=== PATIENT | male | born 1975 | race Two or more races ===

== ENCOUNTER 2024-04-06 21:58 | Inpatient (IN) | payer OTHER ==
[~2024-04-06] VITALS: Ht 170.2 cm; Wt 86.2 kg
[2024-04-06] MEDS ORDERED: GLUMETZA500 MG (22:06)
[2024-04-06] MEDS ORDERED: GLIMEPIRIDE2 MG (22:06)
[2024-04-06] MEDS ORDERED: SIMVASTATIN20 MG (22:06)
--- NOTE | 2024-04-06 22:27 | NUR ---
PTE ALERTA Y ORIENTADO X3, REFIERE VENIR POR SENTIR PALPITACIONES, NO REFIERE DOLOR DE PECHO. SE REALIZA EKG Y SE PRESENTA A QUIEN INDICA UBICAR PTE EN UNIDAD DE CRITICO. SE UBICA EN CRITICO #1 Y SE CONECTA A MONITOR Y OXIMETRIA DE PULSO CONTINUA.
[2024-04-06] MEDS ORDERED: DILTIAZEM HCL 25 MG/5 ML VIAL IV ONE (22:45)
[2024-04-06] MEDS ORDERED: DILTIAZEM HCL 125 MG in 0.9 % SODIUM CHLORIDE 125 ML IV SCH (22:45)
[2024-04-06] MEDS ORDERED: 0.9 % SODIUM CHLORIDE 1,000 ML IV SCH ×2 (22:45→23:15)
--- NOTE | 2024-04-06 22:49 | NUR ---
SE ORIENTA PTE SOBRE TX A SEGUIR, EL MISMO REFIERE ENTENDER. SE PEGGY MUESTRAS DE LAB, SE CANALIZA X2 EN BRAZO DERECHO CON ANGIO #18 EN ANTE BRAZO Y EN MANO.
[2024-04-06 22:55] LABS: HEMATOCRIT 43.1 % (39.0-48.0); HEMOGLOBIN 14.1 g/dL (13-16.00); MEAN CELL VOLUME 93.3 fL (80.0-100.00); MEAN CORPUSCULAR HEMOGLOBIN 30.6 pg (27.00-32.0); MEAN CORPUSCULAR HGB CONC 32.8 g/dl (32.0-36.0); PLATELET COUNT 264 K/uL (150-450); RED BLOOD COUNT 4.62 M/uL (4.00-6.00); RED CELL DISTRIBUTION WIDTH 13.5 % (11.5-14.5)
[2024-04-06 23:16] LABS: INR < 0.93; PARTIAL THROMBOPLASTIN TIME 27.3 SECONDS (22.0-34.0); PROTHROMBIN TIME 10.2 SECONDS (9.0-11.5)
[2024-04-06] MEDS ORDERED: ENOXAPARIN SODIUM 100 MG/ML SYRINGE SUBCUTANEO SCH (23:16)
[2024-04-06 23:22] LABS: ALBUMIN 4.1 gm/dL (3.4-5.0); BILIRUBIN TOTAL 0.34 mg/dL (0.3-1.2); CALCIUM 9.3 mg/dL (8.5-10.1); CREATININE SERUM 1.11 mg/dL (0.70-1.30); GFR 70.41; GLOBULINA 4.2 G/DL (2.4-3.5); POTASSIUM 3.71 mEq/L (3.5-5.1); TOTAL PROTEIN 8.3 gm/dL (6.4-8.2)
[2024-04-06] MEDS ORDERED: ACETAMINOPHEN 500 MG GEL..CAP PO PRN (23:30)
[2024-04-06] MEDS ORDERED: INSULIN LISPRO 1,000 UNIT/10 ML UNITS SUBCUTANEO PRN (23:30)
[2024-04-06] MEDS ORDERED: DEXTROSE 50 % IN WATER 0.5 G/ML DISP.SYRIN IV PRN (23:30)
[2024-04-07] VITALS (7 sets, daily range): BP systolic 97–110; BP diastolic 57–74; O2SAT 95–100
[2024-04-07 07:08] LABS: CHOL HDL RATIO 3.1 (0-5.0); TSH 1.16 uIU/mL (0.358-3.74)
[2024-04-07] MEDS ORDERED: METOPROLOL SUCCINATE 25 MG TAB.SR.24H PO SCH (09:00)
[2024-04-07] MEDS ORDERED: FAMOTIDINE/PF 20 MG in 0.9 % SODIUM CHLORIDE 8 ML IV PUSH SCH (09:00)
[2024-04-07] MEDS ORDERED: ATORVASTATIN CALCIUM 40 MG TABLET PO SCH (09:00)
[2024-04-08] VITALS (9 sets, daily range): BP systolic 112–119; BP diastolic 69–79; O2SAT 90–100
[2024-04-08] MEDS ORDERED: APIXABAN 5 MG TABLET PO SCH (21:00)
[2024-04-08] MEDS ORDERED: FF) FLECAINIDE ACETATE 50MG TAB PO SCH (21:00)
[2024-04-09] VITALS (8 sets, daily range): BP systolic 83–119; BP diastolic 46–68; O2SAT 90–100
[2024-04-10] VITALS: O2SAT 99
[2024-04-10 00:41] VITALS: BP 92/53; O2SAT 100
[2024-04-10 06:06] VITALS: O2SAT 90
[2024-04-10 07:00] LABS: HEMATOCRIT 37.7 % (39.0-48.0); HEMOGLOBIN 12.3 g/dL (13-16.00); MEAN CELL VOLUME 92.7 fL (80.0-100.00); MEAN CORPUSCULAR HEMOGLOBIN 30.3 pg (27.00-32.0); MEAN CORPUSCULAR HGB CONC 32.6 g/dl (32.0-36.0); PLATELET COUNT 217 K/uL (150-450); RED BLOOD COUNT 4.07 M/uL (4.00-6.00); RED CELL DISTRIBUTION WIDTH 13.5 % (11.5-14.5)
[2024-04-10 08:17] LABS: ALBUMIN 3.3 gm/dL (3.4-5.0); BILIRUBIN TOTAL 0.47 mg/dL (0.3-1.2); CALCIUM 8.8 mg/dL (8.5-10.1); CREATININE SERUM 0.98 mg/dL (0.70-1.30); GFR 81.29; GLOBULINA 3.3 G/DL (2.4-3.5); POTASSIUM 4.96 mEq/L (3.5-5.1); TOTAL PROTEIN 6.6 gm/dL (6.4-8.2)
[2024-04-10 08:20] VITALS: BP 109/69; O2SAT 100
[2024-04-10 08:58] VITALS: O2SAT 100
[2024-04-10 12:58] VITALS: O2SAT 95
== END 2024-04-10 13:53 | disposition home or self-care (01) | DRG 310 ==
LOC: ER 22:00 → SEC-K 23:17 → ICU-2 23:17 → SEC-K 04-07 09:22 → MEDI 04-07 12:33
PROVIDERS: General Practice; Internal Medicine; ADMIT Internal Medicine; ATTEND Internal Medicine
PROC: B246ZZZ Ultrasonography of Right and Left Heart (ICD-10-PCS; principal; 2024-04-06)
PROC: 4A12X4Z Monitoring of Cardiac Electrical Activity, External Approach (ICD-10-PCS; 2024-04-07)
DX: I48.20 Chronic atrial fibrillation, unspecified (principal); I10 Essential (primary) hypertension; E11.649 Type 2 diabetes mellitus with hypoglycemia without coma; Z79.4 Long term (current) use of insulin

== ENCOUNTER 2024-06-21 21:12 | Emergency (ER) | payer OTHER ==
[~2024-06-21] VITALS: Ht 182.9 cm; Wt 104.3 kg
[~2024-06-21 21:12] MED LIST: GLIMEPIRIDE2 MG; GLUMETZA500 MG; SIMVASTATIN20 MG
[2024-06-21 21:35] VITALS: BP 107/69; O2SAT 96
[2024-06-21] MEDS ORDERED: METFORMIN HCL1000 MG (21:35)
[2024-06-21] MEDS ORDERED: ELIQUIS5 MG PO (21:35)
[2024-06-21] MEDS ORDERED: LIPITOR40 M1 PO (21:35)
[2024-06-21] MEDS ORDERED: TOPROL XL25 M1 (21:35)
[2024-06-22] MEDS ORDERED: ORPHENADRINE CITRATE 30 MG/ML AMPUL IM STA (02:51)
[2024-06-22] MEDS ORDERED: ACETAMINOPHEN 500 MG GEL..CAP PO STA (02:51)
[2024-06-22 03:21] LABS: HEMATOCRIT 40.6 % (39.0-48.0); HEMOGLOBIN 13.6 g/dL (13-16.00); MEAN CELL VOLUME 91.3 fL (80.0-100.00); MEAN CORPUSCULAR HEMOGLOBIN 30.6 pg (27.00-32.0); MEAN CORPUSCULAR HGB CONC 33.6 g/dl (32.0-36.0); PLATELET COUNT 209 K/uL (150-450); RED BLOOD COUNT 4.45 M/uL (4.00-6.00)
[2024-06-22 03:25] LABS: URINE APPEARANCE Clear; URINE BILIRRUBIN Negative (NEGATIVE); URINE BLOOD Negative; URINE COLOR Dark Yellow; URINE GLUCOSE Negative (NEGATIVE); URINE KETONE Trace (NEGATIVE); URINE LEUKOCYTE Negative; URINE NITRATE Negative; URINE PROTEIN 30 (NEGATIVE); URINE UROBILINOGEN 0.2 E.U./dl
[2024-06-22 03:28] LABS: URINE BACTERIA 13.4 uL (0.0-1933); URINE EPITHELIAL CELLS 3.4 uL (0.0-38.8); URINE WBC 3.9 uL (0.0-23.2)
[2024-06-22 03:39] LABS: URINE CAST 0.58 uL (0.0-1.40); URINE RBC 1.3 uL (0.0-20.8)
[2024-06-22] MEDS ORDERED: NORFLEX100MG PO (06:51)
[2024-06-22] MEDS ORDERED: PAIN RELIEVER500 MG PO (06:51)
== END 2024-06-22 07:11 ==
LOC: ER 21:14
PROVIDERS: General Practice
DX: B34.9 Viral infection, unspecified (principal); R53.81 Other malaise; Z20.822 Contact with and (suspected) exposure to COVID-19; E11.9 Type 2 diabetes mellitus without complications; Z79.84 Long term (current) use of oral hypoglycemic drugs; Z88.6 Allergy status to analgesic agent

== ENCOUNTER 2024-06-26 19:37 | Emergency (ER) | payer OTHER ==
[~2024-06-26] VITALS: Ht 182.9 cm; Wt 102.1 kg
[~2024-06-26 19:37] MED LIST changes: +ELIQUIS5 MG PO; +LIPITOR40 M1 PO; +METFORMIN HCL1000 MG; +NORFLEX100MG PO; +PAIN RELIEVER500 MG PO; +TOPROL XL25 M1
[2024-06-26 21:18] LABS: CALCIUM 9.2 mg/dL (8.5-10.1); CREATININE SERUM 1.22 mg/dL (0.70-1.30); GFR 62.87; POTASSIUM 4.63 mEq/L (3.5-5.1)
[2024-06-26 22:27] LABS: HEMATOCRIT 45.3 % (39.0-48.0); MEAN CELL VOLUME 91.1 fL (80.0-100.00); MEAN CORPUSCULAR HEMOGLOBIN 30.1 pg (27.00-32.0); MEAN CORPUSCULAR HGB CONC 33.1 g/dl (32.0-36.0); RED BLOOD COUNT 4.98 M/uL (4.00-6.00); RED CELL DISTRIBUTION WIDTH 13.7 % (11.5-14.5)
[2024-06-26 22:28] LABS: PLATELET COUNT 67 K/uL (150-450)
== END 2024-06-26 22:59 | disposition home or self-care (01) ==
LOC: ER 19:37
PROVIDERS: General Practice
DX: R53.1 Weakness (principal); Z88.6 Allergy status to analgesic agent; Z20.822 Contact with and (suspected) exposure to COVID-19